=== PATIENT | male | born 1975 | race Two or more races ===

== ENCOUNTER 2024-10-10 06:35 | Day surgery (SDC) | payer MEDICAID, SELFPAY ==
[2024-10-10] VITALS (8 sets, daily range): BP systolic 142–183; BP diastolic 95–117; PULSE 66–87; RESP 12–20; TEMP 36.4–36.6; O2SAT 96–99; BMI 32.1
[2024-10-10] MEDS: fentaNYL CIT INJ 50 mCg/ML AMP 2ML (ASD USE ONLY) IV (07:31)
[2024-10-10] MEDS: DiphenhydrAMINE INJ 50 MG/ML VIAL 25 MG IV (07:32)
[2024-10-10] MEDS: MIDAZOLAM INJ 1 MG/ML VIAL 2 ML (ASD USE ONLY) 2 MG IV (07:33)
--- NOTE | 2024-10-10 07:41 | SUR.OPER ---
INFORMED OF CONSISTENTLY ELEVATED BLOOD PRESSURE. NO NEW ORDERS RECEIVED AT THIS TIME.
== END 2024-10-10 08:33 | disposition home or self-care (01) ==
PROVIDERS: PCP Obstetrics & Gynecology; Referring Provider Surgery; Visit Provider Surgery
PROC: 0DBE8ZX Excision of Large Intestine, Via Natural or Artificial Opening Endoscopic, Diagnostic (ICD-10-PCS; CPT 45380; principal; 2024-10-10 08:00)
DX: Z12.11 Encounter for screening for malignant neoplasm of colon (principal); K64.0 First degree hemorrhoids
CPT/HCPCS: 45378; J1200; J2250; J3010